=== PATIENT | male | born 2000 | race Asian ===

== ENCOUNTER 2020-10-20 15:12 | Emergency (ER) | payer OTHER ==
[~2020-10-20] VITALS: Ht 180.3 cm; Wt 99.2 kg
--- NOTE | 2020-10-20 16:42 | REP ---
INDICATION: crush injury to index finger. COMPARISON: None. TECHNIQUE: Four views FINDINGS: There is soft tissue laceration and partial soft tissue amputation of the lateral aspect of the tip of the 2nd digit. There is no evidence of osseous involvement. IMPRESSION: Soft tissue injury. <Electronically signed by Yuriy Cerda > 10/20/20 [id number]
[2020-10-20] MEDS ORDERED: LIDOCAINE 1% SDV 5ML VIAL DILUENT ONE (18:10)
[2020-10-20] MEDS ORDERED: LIDOCAINE 2% MDV 20ML VIAL SC ONE (18:10)
[2020-10-20] MEDS ORDERED: BOOSTRIX/ADACEL VACCINE (DIPHTH/PERTUSS/ACELL/TETANUS) 0.5ML SYR IM ONE (18:10)
[2020-10-20] MEDS ORDERED: cefTRIAXone SOD 1GM VIAL (J0696 PER 250MG) IM ONE (18:10)
[2020-10-20] MEDS ORDERED: CEPH500C PO (18:12)
[2020-10-20 19:32] VITALS: BP 141/90
== END 2020-10-20 19:47 | disposition home or self-care (01) ==
LOC: M ED 15:12
DX: S68.620A Partial traumatic transphalangeal amputation of right index finger, initial encounter (principal); W27.8XXA Contact with other nonpowered hand tool, initial encounter; Y92.9 Unspecified place or not applicable; Y93.9 Activity, unspecified; Y99.1 Military activity; Z23 Encounter for immunization
CPT/HCPCS: 12001; 73140; 90471; 90715; 96372; 99283; J0696

== ENCOUNTER 2020-10-26 15:07 | Emergency (ER) | payer OTHER ==
[~2020-10-26] VITALS: Ht 180.3 cm; Wt 86.4 kg
[2020-10-26 15:07] VITALS: BP 129/59
[~2020-10-26 15:07] MED LIST: CEPH500C PO
== END 2020-10-26 17:24 | disposition home or self-care (01) ==
LOC: M ED 15:07
DX: Z48.02 Encounter for removal of sutures (principal); Z79.2 Long term (current) use of antibiotics; Z98.890 Other specified postprocedural states

== ENCOUNTER 2021-11-21 10:42 | Emergency (ER) | payer OTHER ==
[~2021-11-21] VITALS: Ht 182.9 cm; Wt 90.2 kg
[2021-11-21] MEDS ORDERED: KETOROLAC 60MG 2ML VIAL IM ONE (15:10)
[2021-11-21 15:45] LABS: BASO % 0.6 % (0.0-1.0); EOS # 0.2 10^3/uL (0.0-0.5); EOS % 3.2 % (0.0-3.0); HEMATOCRIT 46.8 % (42.0-52.0); HEMOGLOBIN 15.4 g/dl (13.5-17.5); LYMPH # 2.8 10^3/uL (1.5-5.0); MEAN CORPUSCULAR HEMOGLOBIN 27.9 pg (27.0-33.0); MEAN CORPUSCULAR HGB CONC 32.9 g/dl (32.0-36.5); MEAN CORPUSCULAR VOLUME 84.9 fl (80.0-96.0); MONO # 0.4 10^3/uL (0.0-0.8); MONO % 6.3 % (2.0-8.0); NEUTROPHILS % 46.7 % (36.0-66.0); PLATELET COUNT, AUTOMATED 197 10^3/uL (150-450); RED BLOOD COUNT 5.51 10^6/uL (4.30-6.10); WHITE BLOOD COUNT 6.5 10^3/uL (4.0-10.0)
[2021-11-21 17:07] LABS: MB/CK RELATIVE INDEX 0.6 (< OR =4)
[2021-11-21] MEDS ORDERED: NAPR-837 PO (17:41)
[2021-11-21 17:56] VITALS: BP 128/75
== END 2021-11-21 17:58 | disposition home or self-care (01) ==
LOC: M ED 10:42
DX: R07.9 Chest pain, unspecified (principal); R00.1 Bradycardia, unspecified
CPT/HCPCS: 71046; 80047; 82550; 82553; 84484; 85025; 85379; 93005; 96374; 99284; J1885